=== PATIENT | male | born 1975 | race Caucasian/White ===

== ENCOUNTER 2019-07-05 09:24 | Emergency (ER) | payer BC ==
[2019-07-05 09:39] VITALS: BP 117/73
--- NOTE | 2019-07-05 09:52 | UC ---
Back Pain HPI - HPI Summary HPI Summary: Pt c/o pain in R middle back/ R ribs. Pt states was at a bar last night and fell on a wooden container and then on the floor. Pt was enbriated and hit head but denies LOC. - History of Current Complaint Chief Complaint: UCTrauma Stated Complaint: SIDE PAIN Time Seen by Provider: 07/05/19 09:44 Hx Obtained From: Patient Onset/Duration: Sudden Onset, Lasting Hours Severity Initially: Severe Severity Currently: Severe Pain Intensity: 10 Back Pain: Is Diffuse - right side Character: Aching, Throbbing, Spasmodic Aggravating Factor(s): Movement Alleviating Factor(s): Nothing Associated Signs And Symptoms: Positive: Swelling - Allergies/Home Medications Allergies/Adverse Reactions: Allergies Allergy/AdvReac Type Severity Reaction Status Date / Time No Known Allergies Allergy Verified 07/05/19 09:33 Home Medications: Home Medications NK [No Home Medications Reported] 07/05/19 [History Confirmed 07/05/19] PMH/Surg Hx/FS Hx/Imm Hx Previously Healthy: Yes - Surgical History Surgical History: Yes Surgery Procedure, Year, and Place: inguinal hernia repair - Family History Known Family History: Positive: Hypertension - Social History Alcohol Use: Occasionally Substance Use Type: None Smoking Status (MU): Heavy Every Day Tobacco Smoker Amount Used/How Often: 1/2 PPD Review of Systems All Other Systems Reviewed And Are Negative: Yes Musculoskeletal: Positive: Decreased ROM, Myalgia Is Patient Immunocompromised?: No Physical Exam Triage Information Reviewed: Yes Appearance: Well-Appearing, Well-Nourished, Pain Distress Vital Signs: Initial Vital Signs Temp 98.7 F 07/05/19 09:33 Pulse 91 07/05/19 09:33 Resp 18 07/05/19 09:33 BP 117/73 07/05/19 09:33 Pulse Ox 98 07/05/19 09:33 Vital Signs Reviewed: Yes Eye Exam: Normal ENT Exam: Normal Dental Exam: Normal Neck exam: Normal Respiratory Exam: Normal Respiratory: Positive: Chest non-tender, Lungs clear, Normal breath sounds Cardiovascular Exam: Normal Abdominal Exam: Normal Bowel Sounds: Positive: Present Musculoskeletal: Positive: ROM Limited @ - in all directions, Edema @ - mild edema of right flank Neurological Exam: Normal Psychological Exam: Normal Skin Exam: Normal Back Pain Course/Dx - Course Course Of Treatment: hx obtained, exam performed ,meds reviewed, UA obtained, and xray obtained. rib fractures noted - Differential Dx/Diagnosis Differential Diagnosis/HQI/PQRI: Fracture, Strain, Sprain Provider Diagnosis: Ribs, multiple fractures Discharge ED - Sign-Out/Discharge Documenting (check all that apply): Patient Departure All imaging exams completed and their final reports reviewed: No Studies - Discharge Plan Condition: Stable Disposition: HOME Patient Education Materials: Rib Fracture (ED) Referrals: No Primary Care Phys,NOPCP [Primary Care Provider] - Additional Instructions: 1. ice for 24 hours 2. alternate ice and heat for 48 hours 3. then heat for the next week 4. Mild movement of trunk and arms \ 5. Cough and deep breath to prevent respiratory issues. 6. FOllow up with any worsening symptoms 7. I recommend taking a good 7-10 days off due to the nature of your job. - Billing Disposition and Condition Condition: STABLE Disposition: Home
== END 2019-07-05 11:10 | disposition home or self-care (01) ==
LOC: UCEAST 09:24
DX: S22.41XA Multiple fractures of ribs, right side, initial encounter for closed fracture (principal); F17.210 Nicotine dependence, cigarettes, uncomplicated; W13.3XXA Fall through floor, initial encounter; W13.8XXA Fall from, out of or through other building or structure, initial encounter; Y92.89 Other specified places as the place of occurrence of the external cause
CPT/HCPCS: 81003; 99211; G0463

== ENCOUNTER 2019-07-11 17:32 | Emergency (ER) | payer BC ==
[2019-07-11] MEDS ORDERED: HYDROcodone/ACETAMIN 5-325 MG* 1 TAB PO ONE (17:54)
--- NOTE | 2019-07-11 18:01 | UC ---
Truncal Trauma HPI - HPI Summary HPI Summary: PATIENT SEEN HERE 07/05/19 AFTER FALLING DOWN AND FOUND TO HAVE NONDISPLACED POSTERIOR FRACTURES OF THE 11TH AND 12TH RIGHT RIBS. WAS TAKING IBUPROFEN FOR DISCOMFORT AND SLOWLY IMPROVING UNTIL ABOUT 2 HOURS PRIOR TO ARRIVAL TODAY WHEN HE FELT A POP AND IS NOW HAVING MUCH MORE INTENSE BACK PAIN AND PAIN WITH BREATHING. NO FEVER. - History Of Current Complaint Chief Complaint: UCRespiratory Stated Complaint: HAS BROKEN RIBS HAVING TROUBLE BREATHING Time Seen by Provider: 07/11/19 17:33 Hx Obtained From: Patient, Family/Criminal Profiler - Onset/Duration: Sudden Onset, Lasting Hours, Still Present Severity Initially: Moderate Severity Currently: Moderate Pain Intensity: 7 Pain Scale Used: 0-10 Numeric Aggravating Factor(s): Movement, Deep Breathing, Cough Alleviating factor(s): Nothing Associated Signs And Symptoms: Negative: SOB, Fever - Allergies/Home Medications Allergies/Adverse Reactions: Allergies Allergy/AdvReac Type Severity Reaction Status Date / Time No Known Allergies Allergy Verified 07/11/19 17:43 Home Medications: Home Medications Ibuprofen 800 mg PO ONCE PRN 07/11/19 [History Confirmed 07/11/19] PMH/Surg Hx/FS Hx/Imm Hx Previously Healthy: Yes - Surgical History Surgical History: Yes Surgery Procedure, Year, and Place: inguinal hernia repair - Family History Known Family History: Positive: Hypertension - Social History Alcohol Use: Occasionally Substance Use Type: None Smoking Status (MU): Heavy Every Day Tobacco Smoker Amount Used/How Often: 1/2 PPD Household Exposure Type: Cigarettes Review of Systems All Other Systems Reviewed And Are Negative: Yes Constitutional: Positive: Negative Respiratory: Positive: Other - PAIN WITH BREATHING Cardiovascular: Positive: Negative Gastrointestinal: Positive: Negative Musculoskeletal: Positive: Other: - RIGHT BACK PAIN Physical Exam Triage Information Reviewed: Yes Appearance: Well-Nourished, Pain Distress - MOD/SEVERE Vital Signs: Initial Vital Signs Temp 97.4 F 07/11/19 17:37 Pulse 92 07/11/19 17:37 Resp 24 07/11/19 17:37 BP 133/78 07/11/19 17:37 Pulse Ox 100 07/11/19 17:37 Vital Signs Reviewed: Yes Eyes: Positive: Conjunctiva Clear ENT: Positive: Hearing grossly normal Neck: Positive: Supple Respiratory: Positive: Other: - VISIBLE PAIN WITH BREATHING Cardiovascular: Positive: Pulses Normal Abdomen Description: Positive: Soft Musculoskeletal: Positive: No Edema Neurological: Positive: Alert Psychological: Positive: Normal Response To Family, Age Appropriate Behavior Skin: Negative: Rashes Diagnostics - Radiology RIGHT RIB XRAYS Radiology Interpretation Completed By: Radiologist Summary of Radiographic Findings: Nondisplaced fractures noted in the right 11th and 12th ribs with early callus formation. No new fractures evident. No consolidation or pulmonary edema. No pleural effusion. No pneumothorax. Truncal Trauma Course/Dx - Course Course Of Treatment: X-RAYS TODAY SHOW RIB FRACTURES HEALING WELL. NO DISPLACEMENT. NO PNEUMOTHORAX OR OTHER LUNG ABNORMALITY. ADVISED TO CONTINUE IBUPROFEN NEEDED FOR PAIN. PRESCRIPTION FOR HYDROCODONE/APAP FOR BREAKTHROUGH PAIN. ENCOURAGED TO TAKE DEEP BREATHS SEVERAL TIMES THROUGHOUT THE DAY TO HELP KEEP LUNGS EXPANDED. TO THE ER WITHOUT FAIL IF SYMPTOMS WORSEN OR DO NOT IMPROVE OVER THE NEXT COUPLE OF DAYS. SUPERVISOR CUTTING AND BONING NEGATIVE. REFERENCE #: [id number] - Differential Dx/Diagnosis Provider Diagnosis: Fracture of rib of right side with routine healing Discharge ED - Sign-Out/Discharge Documenting (check all that apply): Patient Departure All imaging exams completed and their final reports reviewed: Yes - Discharge Plan Condition: Stable Disposition: HOME Prescriptions: HYDROcodone/ACETAMIN 5-325 MG* [[place] 5-325 TAB*] 1 tab PO Q6H PRN #20 tab MDD 4 PRN Reason: Pain Patient Education Materials: Rib Fracture (ED) Forms: *Work Release Referrals: [facility] [Outside] Additional Instructions: YOUR X-RAYS TODAY SHOW THE RIB FRACTURE IS HEALING WELL. NO DISPLACEMENT. LUNGS LOOK NORMAL. CONTINUE IBUPROFEN FOR PAIN. HYDROCODONE FOR BREAKTHROUGH. WE'LL EXTEND TIMEOUT FROM WORK. RIB INJURIES AND FRACTURES: You have been diagnosed as having either bruised or broken ribs. These two injuries are treated in the same way. It will usually take four to six weeks for these injured ribs to heal. Sometimes, rib belts or anesthetic injections of the chest wall help reduce the pain. You should cough or take a deep breath at least every hour or two to prevent lung complications. You should not engage in any strenuous physical activity until released by your physician. The usual rule is "if it hurts, don't do it." Rib fractures can lead to serious lung complications including lung collapse, hemorrhage, and pneumonia. You should go to the ED if any of the following occur: (1) Fever or chills. (2) Persistent cough, coughing up blood, or shortness of breath. (3) Increasing pain. (4) Weakness, lightheadedness, or fainting. Be sure to take slow deep breaths several times daily to help keep your lungs expanded. CALL THE NUMBER BELOW FOR ASSISTANCE IN ESTABLISHING WITH A PCP An additional resource available to assist in finding the appropriate physician for your health care needs is the [facility] ([facility]). You may contact them by calling [phone]. - Billing Disposition and Condition Condition: STABLE Disposition: Home
[2019-07-11 19:01] VITALS: BP 121/68
== END 2019-07-11 19:37 | disposition home or self-care (01) ==
LOC: UCEAST 17:32
DX: S22.41XD Multiple fractures of ribs, right side, subsequent encounter for fracture with routine healing (principal); F17.210 Nicotine dependence, cigarettes, uncomplicated; W18.30XD Fall on same level, unspecified, subsequent encounter
CPT/HCPCS: 99212; G0463

== ENCOUNTER 2019-07-16 06:22 | Emergency (ER) | payer BC ==
--- NOTE | 2019-07-16 06:33 | ED ---
Abdominal Pain/Male - HPI Summary HPI Summary: Pt. is a 44 y.o male who presents to the ER with complaints of chills, nausea, and feeling "sick" x 1 day. Pt. states he was out last night but only had 3 vodka cranberry drinks. Pt. states he woke up early this morning with chills, diaphoresis, and nausea. Pt. dx with two rib fx at [facility] 07/05/19 after falling while intoxicated. Pt. states pain has been managed with ibuprofen. Pt. took motrin just BLINDMAKER. Pt. denies vomiting, diarrhea, sore throat, urinary sxs, h/a, neck pain. Otherwise denies past medical hx. Sxs are mild-moderate in severity. No current modifying factors. - History of Current Complaint Chief Complaint: EDAbdPain Stated Complaint: SICK PER PT Time Seen by Provider: 07/16/19 06:30 Hx Obtained From: Patient Pain Intensity: 3 - Allergies/Home Medications Allergies/Adverse Reactions: Allergies Allergy/AdvReac Type Severity Reaction Status Date / Time No Known Allergies Allergy Verified 07/16/19 06:25 PMH/Surg Hx/FS Hx/Imm Hx Previously Healthy: Yes Cardiovascular History: Denies: Hx Hypertension Respiratory History: Reports: Other Respiratory Problems/Disorders - HX RIGHT RIB FX 07/04/2019 Denies: Hx Asthma - Surgical History Surgery Procedure, Year, and Place: inguinal hernia repair Infectious Disease History: No Infectious Disease History: Denies: Traveled Outside the [place] in Last 30 Days - Family History Known Family History: Positive: Hypertension, Non-Contributory - Social History Occupation: Employed Full-time Lives: With Family Alcohol Use: Occasionally Substance Use Type: Reports: None Smoking Status (MU): Heavy Every Day Tobacco Smoker Amount Used/How Often: 1/2 PPD Review of Systems Positive: Chills Eyes: Negative ENT: Negative Cardiovascular: Negative Respiratory: Negative Positive: Abdominal Pain, Nausea. Negative: Vomiting, Diarrhea Genitourinary: Negative Negative: dysuria Positive: Other - Right low rib pain. Skin: Negative Neurological: Negative Negative: Headache All Other Systems Reviewed And Are Negative: Yes Physical Exam Triage Information Reviewed: Yes Vital Signs On Initial Exam: Initial Vitals Temp Pulse Resp BP Pulse Ox 97.9 F 96 16 146/82 100 07/16/19 06:23 07/16/19 06:23 07/16/19 06:23 07/16/19 06:23 07/16/19 06:23 Vital Signs Reviewed: Yes Appearance: Positive: Well-Appearing - Pt. sitting up in bed in NAD. Lips are dry and chapped. Skin: Positive: Warm, Dry Head/Face: Positive: Normal Head/Face Inspection Eyes: Positive: Normal, EOMI, STU, Conjunctiva Clear ENT: Positive: Pharynx normal, TMs normal. Negative: Tonsillar swelling, Tonsillar exudate Neck: Positive: Supple, Nontender. Negative: Nuchal Rigidity Respiratory/Lung Sounds: Positive: Other - Diminished breath sounds throughout. Cardiovascular: Positive: Normal, RRR Abdomen Description: Positive: Other: - Abd. is soft with mild epigastric tenderness. Right low rib tenderness on palpations. Neurological: Positive: Normal, CN Intact II-III Psychiatric: Positive: Affect/Mood Appropriate Procedures - Sedation Patient Received Moderate/Deep Sedation with Procedure: No Diagnostics - Vital Signs Vital Signs Temp Pulse Resp BP Pulse Ox 07/16/19 06:23 97.9 F 96 16 146/82 100 - Laboratory Result Diagrams: 07/16/19 07:07 07/16/19 07:07 Lab Statement: Any lab studies that have been ordered have been reviewed, and results considered in the medical decision making process. Abdominal Pain Male Course/Dx - Course Course Of Treatment: Pt. presenting with above sxs. He is afebrile with stable VS. Benign abd. exam. Suspect viral etiology. Pt. given IV fluids, toradol, and zofran. Labs unremarkable other than mildly low hemoglobin. Negative flu. CXR obtained to r/o pneumonia which was negative per radiology. On re-exam pt. is feeling much better. Tolerating POs. DC home with zofran. Will f.u with [facility]. To return to er if sxs change or worsen. Pt. understands and agrees wiht plan. - Diagnoses Differential Diagnosis/HQI/PQRI: Appendicitis, Gall Bladder Disease, Hepatitis, Pancreatitis Provider Diagnoses: Viral syndrome Discharge ED - Sign-Out/Discharge Documenting (check all that apply): Patient Departure - Discharge Plan Condition: Improved Disposition: HOME Prescriptions: Ondansetron TAB* [Zofran 4 MG Tab*] 4 mg PO Q6H PRN #12 tab PRN Reason: Nausea Patient Education Materials: Viral Syndrome (ED) Referrals: [facility] [Outside] [facility] [Outside] Additional Instructions: Schedule follow up with the [facility] if symptoms persist Increase fluids and rest Zofran as directed for nausea Tylenol or motrin for discomfort as directed Return to ER if symptoms change or worsen - Billing Disposition and Condition Condition: IMPROVED Disposition: Home
[2019-07-16] MEDS ORDERED: Ketorolac INJ* 30 MG/ML 1 ML VIAL IV PUSH ONE (06:44)
[2019-07-16] MEDS ORDERED: NS 0.9% 1000 ML** 1,000 ML IV ONE (06:44)
[2019-07-16] MEDS ORDERED: Ondansetron INJ* 2 MG/ML VIAL IV ONE (06:44)
[2019-07-16 07:11] LABS: Influenza A Molecular NEGATIVE (Negative); Influenza B Molecular NEGATIVE (Negative)
[2019-07-16 07:17] LABS: ABS Basophils 0.1 10^3/ul (0-0.2); ABS Eosinophils 0.7 10^3/ul (0-0.6); ABS Lymphocytes 2.5 10^3/ul (1.0-4.8); ABS Neutrophils 4.9 10^3/ul (1.5-7.7); Eosinophil % 7.5 %; Hematocrit 40 % (42-52); Hemoglobin 13.5 g/dL (14.0-18.0); Lymphocyte % 26.9 %; Mean Corpuscular HGB Conc 34 g/dL (31-36); Mean Corpuscular Hemoglobin 27 pg (27-31); Mean Corpuscular Volume 80 fL (80-94); Mean Platelet Volume 7.1 fL (7.4-10.4); Platelet Count 287 10^3/uL (150-450); Red Blood Count 4.99 10^6 /uL (4.18-5.48); Red Cell Distribution Width 14 % (10-15); White Blood Count 9.1 10^3/uL (3.5-10.8)
[2019-07-16 07:36] LABS: ALT 14 U/L (7-52); AST 14 U/L (13-39); Albumin 4.2 g/dL (3.2-5.2); Albumin/Globulin Ratio 1.7 (1-3); Alkaline Phosphatase 54 U/L (34-104); Anion Gap 5 mmol/L (2-11); BUN/Creatinine Ratio 21.3 (8-20); Blood Urea Nitrogen 19 mg/dL (6-24); C Reactive Protein < 1.00 mg/L (<8.01); CO2 Carbon Dioxide 25 mmol/L (22-32); Calcium 9.1 mg/dL (8.6-10.3); Chloride 106 mmol/L (101-111); EGFR African American 113.4 (>60); EGFR Non-African American 93.7 (>60); Globulin 2.5 g/dL (2-4); Glucose 95 mg/dL (70-100); Potassium 4.1 mmol/L (3.5-5.0); Sodium 136 mmol/L (135-145); Total Protein 6.7 g/dL (6.4-8.9)
[2019-07-16 08:46] VITALS: BP 114/65
== END 2019-07-16 08:43 | disposition home or self-care (01) ==
LOC: ED 06:22
DX: B34.9 Viral infection, unspecified (principal); F17.200 Nicotine dependence, unspecified, uncomplicated
CPT/HCPCS: 36415; 71046; 80053; 83690; 85025; 86140; 96361; 96374; 96375; 99282; J1885; J2405

== ENCOUNTER 2019-08-09 07:55 | Emergency (ER) | payer BC ==
[2019-08-09] MEDS ORDERED: Ondansetron INJ* 2 MG/ML VIAL IV ONE (08:29)
[2019-08-09] MEDS ORDERED: NS 0.9% 1000 ML** 1,000 ML IV ONE (08:29)
[2019-08-09] MEDS ORDERED: Famotidine IV* 10 MG/ML 2 ML (20 mg) IV SLOW PU ONE (08:30)
[2019-08-09] MEDS ORDERED: Lidocaine 2% VISCOUS* 15 ML UDC PO ONE (08:31)
[2019-08-09] MEDS ORDERED: Al Hydrox/Mg Hydrox/Simet LIQ* 30 ML UDC PO ONE (08:31)
--- NOTE | 2019-08-09 08:51 | ED ---
Abdominal Pain/Male - HPI Summary HPI Summary: Pt. is a 44 y.o male who presents to the ER for worsening epigastric pain and nausea. Pt. seen in ED one month ago for similar symptoms. Pt. notes occasional ETOH use but states he has not drank in one month. Pt. f.u with his PCP outpt. after his last ER visit and states PCP was concerned he may have liver damage and set him up for liver u/s for tomorrow. Pt. has had normal liver enzymes. Otherwise denies past medical hx. No associated sxs of SOB, CP, vomiting, diarrhea. Sxs are moderate in severity. No current modifying factors. - History of Current Complaint Chief Complaint: EDGeneral Stated Complaint: FEELING REALLY SICK/LOW TEMPERATURE PER PT Time Seen by Provider: 08/09/19 08:06 Pain Intensity: 4 - Allergies/Home Medications Allergies/Adverse Reactions: Allergies Allergy/AdvReac Type Severity Reaction Status Date / Time No Known Allergies Allergy Verified 08/09/19 08:03 PMH/Surg Hx/FS Hx/Imm Hx Previously Healthy: Yes Cardiovascular History: Denies: Hx Hypertension Respiratory History: Reports: Other Respiratory Problems/Disorders - HX RIGHT RIB FX 07/04/2019 Denies: Hx Asthma - Surgical History Surgery Procedure, Year, and Place: inguinal hernia repair Infectious Disease History: No Infectious Disease History: Denies: Traveled Outside the [place] in Last 30 Days - Family History Known Family History: Positive: Hypertension, Non-Contributory - Social History Occupation: Employed Full-time Lives: With Family Alcohol Use: None Alcohol Amount: none since thanksgi Substance Use Type: Reports: None Smoking Status (MU): Heavy Every Day Tobacco Smoker Amount Used/How Often: 1/2 PPD Review of Systems Constitutional: Negative Negative: Fever Eyes: Negative ENT: Negative Cardiovascular: Negative Negative: Palpitations, Chest Pain Respiratory: Negative Negative: Shortness Of Breath, Cough Positive: Abdominal Pain, Nausea. Negative: Vomiting, Diarrhea Genitourinary: Negative Skin: Negative Neurological: Negative All Other Systems Reviewed And Are Negative: Yes Physical Exam Triage Information Reviewed: Yes Vital Signs On Initial Exam: Initial Vitals Temp Pulse Resp BP Pulse Ox 98.7 F 93 18 115/97 100 08/09/19 07:56 08/09/19 07:56 08/09/19 07:56 08/09/19 07:56 08/09/19 07:56 Vital Signs Reviewed: Yes Appearance: Positive: Well-Appearing - Pt. sitting up in bed in NAD. present. Skin: Positive: Warm, Dry Head/Face: Positive: Normal Head/Face Inspection Eyes: Positive: Normal, EOMI, STU Neck: Positive: Supple Respiratory/Lung Sounds: Positive: Clear to Auscultation, Breath Sounds Present. Negative: Rales, Rhonchi, Wheezes Cardiovascular: Positive: Normal, RRR Abdomen Description: Negative: Other: - Abd. is soft with epigastric tenderness. Neurological: Positive: Normal, CN Intact II-III Psychiatric: Positive: Affect/Mood Appropriate Procedures - Sedation Patient Received Moderate/Deep Sedation with Procedure: No Diagnostics - Vital Signs Vital Signs Temp Pulse Resp BP Pulse Ox 08/09/19 07:56 98.7 F 93 18 115/97 100 - Laboratory Result Diagrams: 08/09/19 08:42 08/09/19 08:42 Lab Statement: Any lab studies that have been ordered have been reviewed, and results considered in the medical decision making process. Abdominal Pain Male Course/Dx - Course Course Of Treatment: Patient presenting with ongoing epigastric pain and nausea. He is afebrile with stable vital signs. Abdominal exam reveals epigastric tenderness. Patient scheduled for liver ultrasound tomorrow. Suspect patient's symptoms may be secondary to gastritis versus GERD versus gastric ulcer. Patient given IV fluids, Pepcid, GI cocktail and Zofran. Blood work is unremarkable other than minimally elevated WBC and very mild anemia. Ultrasound ordered to evaluate gallbladder and was negative per radiology for any acute findings of the liver or gallbladder. On reexamination patient resting comfortably and tolerating water and bernadine verena. Suspect symptoms are gastric in nature. Patient notes that he drinks a lot of coffee and soda during the day as well as smokes a pack and a half of cigarettes a day and occasionally takes anti-inflammatories. Patient's significant other states he has a poor diet as well. Discussed with patient he will need to try to cut out caffeine, nicotine, spicy/acidic foods and anti-inflammatories. Will place on omeprazole. We'll refer back to family doctor for potential GI referral for endoscopy. Patient return if symptoms change or worsen. Patient understands and agrees with plan. - Diagnoses Differential Diagnosis/HQI/PQRI: Gall Bladder Disease, Hepatitis, Pancreatitis, Peptic Ulcer Disease Provider Diagnoses: Epigastric pain, Nausea Discharge ED - Sign-Out/Discharge Documenting (check all that apply): Patient Departure - Discharge Plan Condition: Improved Disposition: HOME Prescriptions: Omeprazole 40 mg PO DAILY #30 capsule. Ondansetron TAB* [Zofran 4 MG Tab*] 4 mg PO Q6H PRN #12 tab PRN Reason: Nausea Patient Education Materials: Gastritis (ED), Acute Nausea and Vomiting (ED), Epigastric Pain (ED) Referrals: Maria Eugenia Ponce MD [Primary Care Provider] - Additional Instructions: Call your PCP tomorrow for a close follow up appointment Recommend GI referral for endoscopy for further evaluation of epigastric abdominal pain Take omeprazole as directed Avoid alcohol, NSAIDS (ibuprofen, motrin, ect.), spicy/acid foods, caffeine, smoking Return to ER for increased pain, fever, vomiting, or if concerned - Billing Disposition and Condition Condition: IMPROVED Disposition: Home - Attestation Statements Provider Attestation: Patient was presented to me by Tarik MARION. Patient is here with epigastric pain which she has recurrently. Patient is being worked up for possible liver failure by his PCP with normal liver enzymes. Patient is scheduled to have an ultrasound tomorrow. Patient is overall well-appearing per the ALBARO. Patient had blood performed which showed a normal CRP, leukocytosis, and normal liver enzymes. Patient had ultrasound which was neg for gallstones or any liver pathology. Patient was referred to GI for EGD and started on omeprazole. I personally did not see the patient and only had a discussion with Tarik MARION.
[2019-08-09 08:57] LABS: ABS Basophils 0.1 10^3/ul (0-0.2); ABS Eosinophils 0.7 10^3/ul (0-0.6); ABS Lymphocytes 2.1 10^3/ul (1.0-4.8); Eosinophil % 5.5 %; Hematocrit 41 % (42-52); Hemoglobin 13.8 g/dL (14.0-18.0); Mean Corpuscular HGB Conc 33 g/dL (31-36); Mean Corpuscular Hemoglobin 27 pg (27-31); Mean Corpuscular Volume 81 fL (80-94); Mean Platelet Volume 7.4 fL (7.4-10.4); Platelet Count 295 10^3/uL (150-450); Red Cell Distribution Width 14 % (10-15); White Blood Count 11.8 10^3/uL (3.5-10.8)
[2019-08-09 09:09] LABS: ALT 12 U/L (7-52); AST 14 U/L (13-39); Albumin 4.3 g/dL (3.2-5.2); Albumin/Globulin Ratio 1.5 (1-3); Alkaline Phosphatase 52 U/L (34-104); Anion Gap 5 mmol/L (2-11); BUN/Creatinine Ratio 14.3 (8-20); Blood Urea Nitrogen 13 mg/dL (6-24); C Reactive Protein < 1.00 mg/L (<8.01); CO2 Carbon Dioxide 27 mmol/L (22-32); Calcium 9.5 mg/dL (8.6-10.3); Chloride 105 mmol/L (101-111); EGFR African American 110.6 (>60); EGFR Non-African American 91.4 (>60); Globulin 2.9 g/dL (2-4); Glucose 103 mg/dL (70-100); Potassium 3.6 mmol/L (3.5-5.0); Sodium 137 mmol/L (135-145); Total Protein 7.2 g/dL (6.4-8.9)
[2019-08-09 10:47] VITALS: BP 112/73
== END 2019-08-09 10:37 | disposition home or self-care (01) ==
LOC: ED 07:55
DX: R10.13 Epigastric pain (principal); R11.0 Nausea; F17.200 Nicotine dependence, unspecified, uncomplicated
CPT/HCPCS: 36415; 76705; 80053; 83690; 85025; 86140; 96361; 96374; 96375; 99282; A9270-GY; J2405

== ENCOUNTER 2021-04-12 11:50 | Observation (INO) ==
[~2021-04-12 11:50] MED LIST: Buffered Lidocaine 1% SYRIN 1 ml INTRADERM ONE; Lactated Ringers 1000 ml BAG 1,000 ML IV SCH
[2021-04-12] MEDS ORDERED: ceFAZolin 2 GM in NS PREMIX 2 GM/100 ML BAG IVPB ONE (13:01)
[2021-04-12] MEDS ORDERED: Midazolam 2 mg/2 ml VIAL 1 mg/ml 2 ml VIAL (2 mg) ONE (14:08)
[2021-04-12] MEDS ORDERED: fentaNYL 250 mcg/5 ml 50 MCG/ML 5 ml VIAL (250 MCG) ONE (14:08)
[2021-04-12] MEDS ORDERED: Rocuronium 50 mg VIAL 10 mg/ml 5 ml VIAL (50 mg) ONE (14:08)
[2021-04-12] MEDS ORDERED: Lidocaine 2% PF 5 ML VIAL ONE (14:10)
[2021-04-12] MEDS ORDERED: Propofol 10 MG/ML 20 ML BTL ONE ×2 (14:18→15:01)
[2021-04-12] MEDS ORDERED: Bupivacaine 0.25% SDV 30 ML ONE (15:08)
[2021-04-12] MEDS ORDERED: HYDROmorphone 1 MG/1 ML SYRINGE ONE ×2 (15:48→17:38)
[2021-04-12] MEDS ORDERED: Dexamethasone IV 4 MG/ML VIAL 1 ml VIAL ONE (16:09)
[2021-04-12] MEDS ORDERED: Ondansetron 4 mg VIAL 2 MG/ML 2 ml VIAL ONE ×2 (16:09→20:00)
[2021-04-12] MEDS ORDERED: Acetaminophen IV 1 GM/100ML 100 ML IV ONE (16:36)
[2021-04-12] MEDS ORDERED: diPHENhydraMINE IV 50 MG/ML 1 ml VIAL (BENADRYL) IV PRN (16:44)
[2021-04-12] MEDS ORDERED: Naloxone 0.4 mg VIAL 0.4 mg/ml 1 ml VIAL IV PRN (16:44)
[2021-04-12] MEDS ORDERED: DiMENhydriNATE IV 50 mg/ml 1 ml VIAL IV PUSH PRN (16:44)
[2021-04-12] MEDS ORDERED: fentaNYL 100 mcg/2 ml 50 MCG/ML VIAL ONE (16:58)
[2021-04-12] MEDS: fentaNYL 100 mcg/2 ml 50 MCG/ML VIAL IV PRN ×4 (16:59→17:30)
[2021-04-12] MEDS: HYDROmorphone 1 MG/1 ML SYRINGE IV PRN ×2 (17:39→17:54)
[2021-04-12] MEDS ORDERED: DiMENhydriNATE IV 50 mg/ml 1 ml VIAL ONE (18:41)
[2021-04-12] MEDS ORDERED: Ondansetron 4 mg VIAL 2 MG/ML 2 ml VIAL IV PRN (20:59)
[2021-04-12] MEDS ORDERED: HYDROmorphone 1 MG/1 ML SYRINGE IV SLOW PU PRN (20:59)
[2021-04-12] MEDS ORDERED: HYDROcodone/ACETAMIN 5/325 mg TAB PO PRN (20:59)
[2021-04-12] MEDS ORDERED: Lactated Ringers 1000 ml BAG 1,000 ML IV SCH (21:00)
[2021-04-12] MEDS ORDERED: Metoclopramide 5 MG/ML VIAL (10 mg) IV PRN (21:04)
[2021-04-13 07:29] VITALS: BP 121/58
== END 2021-04-13 08:58 | disposition home or self-care (01) ==
LOC: OR 11:50 → SSU 11:50
PROVIDERS: ADMIT Surgery; ATTEND Surgery